=== PATIENT | male | born 1945 | race Caucasian/White ===

== ENCOUNTER → 2021-02-19 14:11 | Outpatient (CLI) | payer MEDICARE, SELFPAY ==
--- NOTE | 2021-02-19 14:12 | US_ITS ---
PROCEDURE: US TESTICULAR CLINICAL INDICATION: Testicular swelling COMPARISON: No exams were available for comparison FINDINGS: Right testicle 2.8 x 1.5 x 2 5 cm. Left testicle is 3 x 1 x 2.3 cm. A 7 x 5 mm right epididymal cyst is noted. No testicular mass is evident. There is bilateral testicular blood flow. No hydrocele apparent. No varicocele evident. Posterior to the testicles there is a large amount of what appears to represent fatty tissue. It is possible that this could represent fat within hernia. Consider CT for further evaluation. No evidence of bowel contents within this fat IMPRESSION: Unremarkable testicles with a small right-sided epididymal cyst. Large amount of what appears to represent fatty tissue posterior to the testicles. This could represent fat within the hernia. CT may confirm. Dictated by: Steven Larsen MD 02/19/2021 19:35 Steven Larsen MD in [place] 02/19/2021 19:35
== END ==
PROVIDERS: PCP Family Medicine; Visit Provider Urology
DX: N50.89 Other specified disorders of the male genital organs (principal)
CPT/HCPCS: 76870

== ENCOUNTER → 2022-05-28 14:46 | Outpatient (CLI) | payer MEDICARE, SELFPAY ==
--- NOTE | 2022-05-28 14:59 | ECG_ITS ---
APPROVED REPORT Exam: Resting ECG HR:76 bpm ECG Measurements Heart Rate 76 AXES FL 163 P 4 QRSd 79 QRS 19 QT 374 T 20 QTc 404 Conclusion SINUS RHYTHM NORMAL ECG UNCONFIRMED REPORT Electronically signed by : Bossman Domínguez MD 05/28/2022 18:35:15
[2022-05-28 15:05] LABS: Microscopic, Urine URINE MICROSCOPIC (MICROSCOPIC)
[2022-05-28 17:21] LABS: Appearance,Urine CLEAR (Clear); Bilirubin,Urine Negative (Negative); Blood, Urine TRACE-I (Negative); Color,Urine YELLOW (Yellow); Glucose,Urine (UA) Negative (Negative); Ketones,Urine Negative (Negative); Leukocyte Esterase,Urine Negative (Negative); Nitrate,Urine Negative (Negative); Protein,Urine Negative (Negative); Specific Gravity, Urine >= 1.030 (1.005-1.030); Urobilinogen,Urine 0.2 EU/dl (0.2)
[2022-05-28 17:27] LABS: Basophils # 0.1 K/mm3 (0-0.2); Basophils % 0.8 % (0.1-2.0); Eosinophils # 0.2 K/mm3 (0.0-0.4); Eosinophils % 2.7 % (0.1-12.0); Hematocrit 38.5 % (42.0-52.0); Hemoglobin 13.5 g/dL (14.1-18.0); Lymphocytes # 1.4 K/mm3 (0.7-4.5); Lymphocytes % 20.4 % (10-50); Mean Corpuscular Hemoglobin 32.2 pg (27.0-31.2); Mean Corpuscular Volume 91.9 fl (80-94); Mean Platelet Volume 7.8 fl (7.4-10.4); Monocytes # 0.5 K/mm3 (0.1-1.0); Monocytes % 6.6 % (1.7-9.3); Neutrophils # 4.8 K/mm3 (1.8-7.8); Neutrophils % 69.5 % (37.0-80.0); Platelet Count 228 K/mm3 (142-424); Red Blood Count 4.19 M/mm3 (4.60-6.20); Red Cell Distribution Width 13.4 % (11.5-17.5); White Blood Count 6.9 K/mm3 (4.8-10.8)
[2022-05-28 18:06] LABS: Chloride 105 mmol/L (98-107)
[2022-05-28 18:07] LABS: Sodium 136 mmol/L (136-145)
[2022-05-28 18:10] LABS: Blood Urea Nitrogen 22 mg/dl (9-20); Calcium 8.4 mg/dl (8.4-10.2); Carbon Dioxide 24 mmol/L (22.0-30.0); Estimated Glomerular Filt Rate 94 ml/min (>60); GFR (African American) 113 ML/MIN (>60); Glucose 91 mg/dl (74-100)
[2022-05-28 18:13] LABS: RBC,Urine Occasional #/hpf (0-3); WBC,Urine Occasional #/hpf (0-3)
== END ==
PROVIDERS: PCP Family Medicine; Visit Provider Surgery
DX: K40.90 Unilateral inguinal hernia, without obstruction or gangrene, not specified as recurrent (principal); Z01.818 Encounter for other preprocedural examination
CPT/HCPCS: 36415; 80048; 81001; 85025; 93005

== ENCOUNTER 2022-06-26 06:41 | Day surgery (SDC) | payer MEDICARE, SELFPAY ==
[2022-06-24 12:01] VITALS: BMI 29.5
[2022-06-26] VITALS (10 sets, daily range): BP systolic 108–166; BP diastolic 61–93; PULSE 66–76; RESP 16–18; TEMP 36.3–43; O2SAT 94–99
--- NOTE | 2022-06-26 07:19 | EXP.ANES.CKL ---
[facility] Disclaimer: The information contained in this section may have been updated after the patient was seen, as this information can be updated by other users. Medical History History of blood clots Hypertension Surgical History History of colonoscopy History of hydrocelectomy Social History Smoking Status: Never smoker alcohol intake: never substance use type: denies use current occupational status: retired Travel in the last 8 weeks: None household members: none housing: house caffeine: No [facility] Anesthesia Checklist Patient Identification Patient Identification: Arm Band and Verbal (Name & ) Structural Data Admitted From: Home Planned Operative Procedure/s: Inguinal hernia repair Consent for Planned Operative Procedure(s) Verified: Yes NPO Status Verified Time NPO: 00:00 Additional verifications Anesthesia Reactions: No Hx Blood Transfusions: No Blood Transfusion Reaction: No Airway Assessment C-Spine Mobility Assessed: Yes TMJ Mobility Assessed: Yes Dentition: Good Dentition Neurological Assessment Level of Consciousness: Awake Hx Seizures: No Numbness or tingling in extremities: No Anesthesia Plan Anesthesia Risk discussed: Yes Anesthesia Plan: Verified ASA Class: II Anesthesia Type: General
--- NOTE | 2022-06-26 10:18 | EXP.OP.NOTE ---
Date of procedure: 06/26/22 Pre-op Diagnosis:: Left inguinal hernia Post-op Diagnosis:: Same Procedure performed:: Open left inguinal hernia repair Surgeon:: Aayush Crawley MD [employer] OFFICER:: Jacob Williamson Anesthesia: LMA Estimated blood loss (mL): 15 Operative findings:: Large indirect defect Large portion of omentum and preperitoneal fat within the hernia sac Thin-walled hernia sac with dense surrounding adhesions Operative note:: After informed consent was obtained the patient was taken to the operating room and placed in the supine position. General anesthesia with laryngeal mask airway was achieved. His lower abdomen and groin/scrotum were prepped and draped in a sterile fashion. After infiltration local anesthetic a left oblique groin incision was made sharply with scalpel. The deep subcutaneous tissue was dissected through Braxton's fascia with electrocautery to the level of the external aponeurosis. The external aponeurosis was sharply opened to the level of the external ring. The contents of the canal were carefully elevated. A large cord lipoma was resected. A fairly large portion of omentum was then carefully removed from the scrotum. No obvious injury to the vas deferens or vasculature was noted. Dense adhesions throughout the region were noted. Careful dissection was utilized to free the omentum. The distal margin of omentum was then transected to facilitate return of the remaining portion to the abdominal cavity. An extra-large PerFix plug was secured in position with interrupted Ethibond. The PerFix overlay was then secured to the shelving edge inferiorly and fascial margin superiorly with interrupted Ethibond. The external aponeurosis was reapproximated with running non-dyed Vicryl. Braxton's fascia was closed in the same manner. Skin was then reapproximated with running 3-0 Monocryl STRATAFIX. Dressings were applied and the patient was transferred to recovery in stable condition. Condition: stable Disposition: PACU Specimens:: none Complications:: No immediate
--- NOTE | 2022-06-26 10:24 | EXP.ANES.I ---
[facility] Anesthesia Record Part I Anesthesia Record I Intake, IV Amount: 1,100 Estimated blood loss (mL): 10 Urine output (mL): 0 Blood Products used (#): none Blood Pressure: 119/67 SaO2: 94 Pulse Rate: 76 Respiratory Rate: 16 Temperature: 98.1 F Patient is:: Drowsy and Stable Stable to PACU at:: 10:20
[2022-06-26 14:53] LABS: Microscopic,Cath URINE MICROSCOPIC (MICROSCOPIC)
[2022-06-26 15:05] LABS: Appearance,Urine/Cath CLEAR (Clear); Bilirubin,Cath Negative (Negative); Blood, Urine/Cath TRACE-I (Negative); Color,Urine/Cath YELLOW (Yellow); Glucose,Urine/Cath (UA) Negative (Negative); Ketones,Urine/Cath Negative (Negative); Leukocyte Esterase,Cath Negative (Negative); Nitrate,Cath Negative (Negative); Protein,Urine/Cath Negative (Negative); Specific Gravity, Urine/Cath 1.015 (1.005-1.030); Urobilinogen,Cath 0.2 EU/dl (0.2)
--- NOTE | 2022-06-27 07:09 | P.PNANES_ITS ---
[facility] Anesthesia Record Part II Anesthesia Record Part II Discharge Time: 10:51 Destination: Surgical Day Care (OP Surgery) PACU nurse assessment reviewed?: Yes Patient Condition:: Good Anesthesia Complications:: None Swallowing reflex intact?: Yes Cyanosis?: No Blood Pressure: 110/67 Pulse Rate: 70 Temperature: 97.6 F Mental Status: Alert & Oriented Pain level:: 0 Nausea and/or vomitting:: None Intake, IV Amount: 0
[2022-06-27 07:10] VITALS: BP 110/67; PULSE 70; TEMP 36.4
== END 2022-06-26 11:21 | disposition home or self-care (01) ==
PROVIDERS: PCP Family Medicine; Visit Provider Surgery
DX: K40.90 Unilateral inguinal hernia, without obstruction or gangrene, not specified as recurrent (principal); K66.0 Peritoneal adhesions (postprocedural) (postinfection); Z79.899 Other long term (current) drug therapy
CPT/HCPCS: 49505; 81001; 96374; J2405

== ENCOUNTER 2023-11-03 12:27 | Outpatient (CLI) | payer MEDICARE, SELFPAY ==
[2023-11-03 16:48] LABS: Basophils % 0.8 % (0.1-2.0); Eosinophils # 0.1 K/mm3 (0.0-0.4); Eosinophils % 2.2 % (0.1-12.0); Hematocrit 42.9 % (42.0-52.0); Lymphocytes # 1.1 K/mm3 (0.7-4.5); Lymphocytes % 22.6 % (10-50); Mean Corpuscular HGB Conc 32.7 g/dL (31.8-35.4); Mean Corpuscular Hemoglobin 31.2 pg (27.0-31.2); Mean Corpuscular Volume 95.4 fl (80-94); Mean Platelet Volume 8.5 fl (7.4-10.4); Monocytes # 0.4 K/mm3 (0.1-1.0); Monocytes % 8.5 % (1.7-9.3); Neutrophils # 3.3 K/mm3 (1.8-7.8); Platelet Count 253 K/mm3 (142-424); Red Cell Distribution Width 13.8 % (11.5-17.5); White Blood Count 5.1 K/mm3 (4.8-10.8)
[2023-11-03 16:50] LABS: Alanine Aminotransferase 17 U/L (12-78); Albumin Level 3.9 g/dl (3.5-5.0); Albumin/Globulin Ratio 1.4 (1.1-1.8); Alkaline Phosphatase 73 U/L (38-126); Anion Gap 8.9 mEq/L (5-15); Aspartate Amino Transferase 23 U/L (17-59); Bilirubin,Total 0.6 mg/dl (0.2-1.3); Blood Urea Nitrogen 24 mg/dl (9-20); Calcium 9.4 mg/dl (8.4-10.2); Carbon Dioxide 29 mmol/L (22.0-30.0); Chloride 104 mmol/L (98-107); Chol/HDL Ratio 4.3 (1-3.5); Cholesterol 206 mg/dl (140-200); Estimated Glomerular Filt Rate 93 ml/min (>60); GFR (African American) 113 ML/MIN (>60); Globulin 2.8 g/dL (1.3-3.2); Glucose 106 mg/dl (74-100); HDL Cholesterol 48 mg/dl (40-60); Potassium 4.9 mmoL/L (3.5-5.1); Sodium 137 mmol/L (136-145); Total Protein,Serum 6.7 g/dl (6.3-8.2); Triglycerides 89 mg/dl (30-150); VLDL Cholesterol 18 mg/dL (0-40)
[2023-11-03 17:01] LABS: Direct LDL Cholesterol 128.46 mg/dL (100-129)
[2023-11-03 17:21] LABS: Thyroid Stimulating Hormone 0.88 uIU/mL (0.465-4.68)
== END 2023-11-03 23:59 | disposition home or self-care (01) ==
LOC: LAB.DROPOF 11-04 12:28
PROVIDERS: PCP Family Medicine; Visit Provider Family Medicine
DX: I10 Essential (primary) hypertension (principal)
CPT/HCPCS: 80050; 80053; 80061; 84443; 85025

== ENCOUNTER 2023-12-22 13:44 | Outpatient (POV) | payer MEDICARE, SELFPAY | END 2023-12-22 23:59 | disposition home or self-care (01) | LOC: SC 13:44 | PROVIDERS: PCP Family Medicine; Visit Provider Dermatology | DX: Z00.00 Encounter for general adult medical examination without abnormal findings (principal) ==

== ENCOUNTER 2024-03-21 06:39 | Day surgery (SDC) | payer MEDICARE, SELFPAY ==
[2024-03-15 16:17] VITALS: BMI 26.4
[2024-03-21] VITALS (7 sets, daily range): BP systolic 89–154; BP diastolic 53–85; PULSE 69–90; RESP 16; TEMP 36.2; O2SAT 93–97
[2024-03-21] MEDS: LACTATED RINGERS 1000ML 1,000 ML 25 ML IV (07:39)
--- NOTE | 2024-03-21 08:02 | P.PNANES_ITS ---
[facility] Disclaimer: The information contained in this section may have been updated after the patient was seen, as this information can be updated by other users. Medical History Hyperlipidemia Insomnia History of blood clots Hypertension Surgical History History of hernia repair History of hydrocelectomy History of colonoscopy Family History Other Family history of colon cancer Social History Smoking Status: Never smoker alcohol intake: never substance use type: denies use current occupational status: retired Travel in the last 8 weeks: None household members: none housing: house caffeine: No [facility] Anesthesia Checklist Patient Identification Patient Identification: Arm Band, Family and Verbal (Name & ) Structural Data Admitted From: Home Planned Operative Procedure/s: Colonoscopy Consent for Planned Operative Procedure(s) Verified: Yes Verified Documents: Surgical Consent and History and Physical NPO Status Verified Time NPO: 05:30 Chart Verification Results Verified: CBC, BMP, ECG and Chest Xray Additional verifications Patient : No Anesthesia Reactions: No Hx Blood Transfusions: No Blood Transfusion Reaction: No Previous Colonoscopy: Yes Cardiovascular Assessment Heart Sounds: S1 & S2 Pulse Rhythm: Irregular Peripheral Edema: No Airway Assessment Mallampati Score:: Class II C-Spine Mobility Assessed: Yes (FROM demonstrated) TMJ Mobility Assessed: Yes Dentition: Poor Dentition (Nothing loose per pt.) Neurological Assessment Level of Consciousness: Awake, Alert, Appropriate and Follows Commands Hx Seizures: No Numbness or tingling in extremities: No Anesthesia Plan Anesthesia Risk discussed: Yes Anesthesia Plan: Verified ASA Class: III Anesthesia Type: MAC
--- NOTE | 2024-03-21 08:15 | EXP.HP ---
History of Present Illness *Admission Date: 03/21/24 *Reason for visit:: Personal history of adenomatous colon polyps *History of present illness: Mr. Fortune is a 79-year-old gentleman who is here for follow-up surveillance colonoscopy secondary to a personal history of adenomatous colon polyps and his last colonoscopy was 5 years ago (February 2019 at which time 2 polyps (tubular adenomas x 2) were removed.. The examination is deemed medically necessary for surveillance colonoscopy. The patient has been seen, interviewed and examined prior to the procedure by both myself and the anesthesia provider. [facility] Disclaimer: The information contained in this section may have been updated after the patient was seen, as this information can be updated by other users. Medical History (Updated 03/21/24 @ 08:16 by Norberto Bright II, MD) Hyperlipidemia Insomnia History of blood clots Hypertension Surgical History History of hernia repair History of hydrocelectomy History of colonoscopy Family History Other Family history of colon cancer Social History Smoking Status: Never smoker alcohol intake: never substance use type: denies use current occupational status: retired Travel in the last 8 weeks: None household members: none housing: house caffeine: No Other Medical History Have you received the Flu Vaccine for this season: No Have you received the Pneumonia Vaccine: No Review of Systems Review of Systems Review of systems (narrative): Negative *Cardiovascular Comments: Negative *Gastrointestinal Comments: Negative *Genitourinary Comments: Negative *Musculoskeletal Comments: Negative *Neurologic Comments: Negative Meds Home Medications and Allergies Home Medications ?Medication ?Instructions ?Recorded ?Confirmed ?Type pravastatin 20 mg tablet 20 mg PO DAILY Cholesterol 02/23/19 03/21/24 History lorazepam 1 mg tablet 1 - 2 mg (1 - 2 x 1 mg) PO HS PRN 08/26/23 03/21/24 Rx sleep #180 tabs cholecalciferol (vitamin D3) 50 50 mcg PO DAILY 11/03/23 03/21/24 History mcg (2,000 unit) capsule omeprazole magnesium 20 mg 20 mg PO DAILY 11/03/23 03/21/24 History tablet,delayed release (Prilosec OTC) lisinopril 20 1 tab PO DAILY 90 days #90 tabs 01/04/24 03/21/24 Rx mg-hydrochlorothiazide 25 mg tablet sod picosulf 10 mg-magnes 3.5 175 ml PO DAILY Bowel Prep 2 doses 03/17/24 03/21/24 Rx gram-citric 12 gram/175 mL oral #350 mL solution (Clenpiq) New Prescriptions to Start Prescriptions: Allergies Allergy/AdvReac Type Severity Reaction Status Date / Time No Known Allergies Allergy Verified 03/21/24 07:38 Exam Data for Last 24 hours Vital signs and Labs for Last 24 Hours: Temp Pulse Resp BP Pulse Ox O2 Del Method 97.1 F L 90 16 154/85 H 97 Room Air 03/21/24 07:40 03/21/24 07:40 03/21/24 07:40 03/21/24 07:40 03/21/24 07:40 03/21/24 07:40 *Routine HEENT Exam Head: Present normocephalic Eye: Present EOMI and PERRL ENT: Present mucous membranes moist *Routine Neck Exam Neck: Present supple *Routine Respiratory Exam Respiratory: Present CTA bilaterally *Routine Cardiovascular Exam Cardiovascular: Present RRR *Routine Abdominal Exam Abdominal: Present soft and normoactive bowel sounds; Absent tenderness *Routine Rectal Exam Rectal:: deferred *Routine Genitalia Exam Genitalia:: deferred *Routine Extremities Exam Extremities: Absent cyanosis, clubbing or edema *Routine Skin Exam Skin: Present warm; Absent rash *Routine Neurological Exam Neurological: Present alert and oriented X3 Assessment and Plan *Assessment and plan (1) Personal history of adenomatous and serrated colon polyps: Status: Acute Category: Medical Code(s): Z86.0101 - Personal history of adenomatous and serrated colon polyps Plan A/P: 1. Personal history of adenomatous colon polyps is the preprocedural diagnosis. The patient will be anesthetized/sedated using MAC sedation. The patient has been seen and examined. Cardiac and lung assessment prior to the examination is stable. Proceed with planned surveillance colonoscopy
--- NOTE | 2024-03-21 08:17 | P.PCN_ITS ---
[facility] Procedure Note Date: 03/21/24 Time: 08:45 Procedure Note:: Colonoscopy Procedure Report: Colonoscopy with cold snare polypectomy and TTS balloon dilation Endoscopist: Norberto Bright II, MD Referring physician: Wicho Pablo MD Date of Procedure: March 21, 2024 Equipment: Olympus 190 variable stiffness pediatric colonoscope Sedation: MAC sedation Indication: Mr. Fortune is a 79-year-old gentleman who is here for follow-up surveillance colonoscopy. The patient did have a colonoscopy in February 2019 and had 2 polyps (tubular adenomas x 2) removed. The patient has had some chronic obstipation with small caliber bowel movements. This has not changed from his prior colonoscopy. He does get moderate gassiness and bloating. He does take [id number] ClearLax plus Konsyl. The patient formerly had some anal stenosis that was dilated. He does state that his maternal uncle had colon cancer. He reports no rectal bleeding or weight loss. Procedure: Prior to the procedure, a history and physical exam was performed, and patient's medications and allergies were reviewed. The risks, benefits and alternatives of the sedation and procedure were discussed with the patient. All questions were answered and informed consent was obtained. The patient was brought to the procedure room. Patient identification and proposed procedure were verified by the physician and the nurse. The patient was placed in a left lateral decubitus position and the scope was passed under direct vision. Throughout the procedure, the patient's blood pressure, pulse, and oxygen saturations were monitored continuously. The colonoscopy was accomplished without difficulty. The patient tolerated the procedure well. Findings: On digital rectal examination there was some anal stenosis/fibrotic stenosis and there were no external hemorrhoids. The prostate was 2+, smooth, soft, symmetric without nodules. The colonoscope was introduced through the anal canal to the rectum and advanced to the cecum. The ileocecal valve and appendiceal orifice were identified. The scope was advanced a short distance into the ileum which appeared grossly normal. The scope was then withdrawn into the colon. There were 3 polyps (ascending x 2 (3 and 5 mm) and transverse x 1 (4 mm)). These were all removed via cold snare polypectomy. The cecum, ascending and transverse colon and mucosa were grossly normal. There were scattered diverticuli throughout the colon but more predominantly in the descending and sigmoid colon (LEFT colon). The rectum itself was normal. Upon retroflexion within the rectum there were grade 1-2 internal hemorrhoids. The anal canal was manually dilated and then dilated with a TTS hydrostatic balloon to 20 mm/60 English. The preparation was excellent throughout with [place] Preparation Score of 9. The cecal time was 12 minutes. Impression: 1. Diminutive colonic polyps x 3 2. Pandiverticulosis 3. Grade 1-2 internal hemorrhoids 4. Fibrotic anal stenosis and dilated initially manually and then to 20 mm with TTS hydrostatic balloon Plan: I will follow-up the polyp histology. I am not convinced that he will require further surveillance based upon age. I will encourage continuation of the fiber bowel regimen (ClearLax plus psyllium Konsyl).
== END 2024-03-21 09:23 | disposition home or self-care (01) ==
PROVIDERS: PCP Family Medicine; Visit Provider Internal Medicine Gastroenterology
PROC: (CPT 45385; principal; 2024-03-21 08:30)
DX: K63.5 Polyp of colon (principal); K57.30 Diverticulosis of large intestine without perforation or abscess without bleeding; K64.8 Other hemorrhoids; Q42.3 Congenital absence, atresia and stenosis of anus without fistula; Z86.0101 Personal history of adenomatous and serrated colon polyps; Z80.0 Family history of malignant neoplasm of digestive organs
CPT/HCPCS: 45385; 45386; 88305; C1726; J7120